=== PATIENT | male | born 1975 | race Caucasian/White ===

== ENCOUNTER 2024-12-01 22:59 | Emergency (ER) | payer SELFPAY ==
[~2024-12-01] VITALS: Ht 182.9 cm; Wt 86.4 kg
[2024-12-01 23:20] VITALS: BP 145/83; TEMP 98.7; O2SAT 100
[2024-12-02] MEDS: KETOROLAC 60MG 2ML VIAL IM ONE (00:35)
[2024-12-02] MEDS: ceFAZolin 1GM VIAL IM ONE (00:40)
[2024-12-02] MEDS ORDERED: KETOROLAC 30 MG/ML 1ML VIAL As Ordered ONE (00:54)
[2024-12-02] MEDS: BOOSTRIX VACCINE (TETANUS/DIPHTH/ACEL. PERTUSSIS) 0.5ML SYR IM ONE (00:58)
[2024-12-02] MEDS ORDERED: PERCOCET 5MG/325MG TAB PO ONE (01:40)
[2024-12-02] MEDS ORDERED: PERCOCET 5MG/325MG TAB As Ordered ONE (01:49)
== END 2024-12-02 02:20 | disposition left against medical advice (07) ==
LOC: M ED 22:59
DX: S61.412A Laceration without foreign body of left hand, initial encounter (principal); Y92.9 Unspecified place or not applicable; Y93.9 Activity, unspecified; Y99.0 Civilian activity done for income or pay; F17.210 Nicotine dependence, cigarettes, uncomplicated; Z23 Encounter for immunization; Z53.9 Procedure and treatment not carried out, unspecified reason
CPT/HCPCS: 73120; 90471; 90715; 96372; 99283; J0690; J1885

== ENCOUNTER → 2025-07-08 | Outpatient (CLI) | payer OTHER ==
[~2025-07-08] MED LIST: SUBO8MIS SL
== END ==
LOC: M CARPUL 15:19
PROVIDERS: ATTEND Internal Medicine Addiction Medicine
DX: R55 Syncope and collapse (principal)